=== PATIENT | male | born 1955 | race Caucasian/White ===

== ENCOUNTER 2017-02-04 10:50 | Emergency (ER) | payer MEDICARE, OTHER ==
[~2017-02-04 10:50] MED LIST: ABILIFY10 MG PO; ADVAIR 250-501 EACH INH; ALBUTEROL0.63 MG/3 INH; ASPIRIN 325MG325 MG PO; ASPIRIN325 MG PO; BUSPAR 10MG10 MG PO; CELEBREX200 MG PO; FENOFIBRATE160 MG PO; IBUPROFEN600 MG PO; LAMICTAL TAB 1100 MG PO; LEVAQUIN750 MG PO; LISINOPRIL10 MG PO; MICARDIS40 MG PO; NEURONTIN 400400 MG PO; PAXIL40 MG PO; PERCOCET 10-321 EACH PO; PROAIR HFA8.5 GM INH; PROTONIX 40 MG40 M1 PO; SIMVASTATIN20 MG PO; TESSALON PERLE100 MG PO; TUSSIN100 MG/5 M PO
[2017-02-04 13:16] LABS: HEMOGLOBIN 12.5 gm/dl (14.0-17.5); RED BLOOD COUNT 4.41 M/UL (4.20-5.50); WHITE BLOOD COUNT 5.5 K/UL (4.5-11.0)
[2017-02-04 13:48] LABS: BUN/CREATININE RATIO 16 (0-10)
== END 2017-02-04 18:04 | disposition home or self-care (01) ==
LOC: ER1 10:50
PROVIDERS: Specialist/Technologist Athletic Trainer
DX: I11.0 Hypertensive heart disease with heart failure (principal); I50.9 Heart failure, unspecified; J44.1 Chronic obstructive pulmonary disease with (acute) exacerbation; E66.01 Morbid (severe) obesity due to excess calories; I25.10 Atherosclerotic heart disease of native coronary artery without angina pectoris; Z87.891 Personal history of nicotine dependence; Z88.0 Allergy status to penicillin; Z88.2 Allergy status to sulfonamides; Z88.8 Allergy status to other drugs, medicaments and biological substances; Z95.5 Presence of coronary angioplasty implant and graft
CPT/HCPCS: 36415; 36600; 71020; 80053; 82550; 82553; 82803; 83874; 83880; 84484; 85025; 85610; 85730; 93005; 96374; 99285; J1940

== ENCOUNTER → 2017-03-31 | Outpatient (CLI) | payer MEDICARE, OTHER | LOC: EXRD 10:40 | DX: J44.9 Chronic obstructive pulmonary disease, unspecified (principal); J90 Pleural effusion, not elsewhere classified | CPT/HCPCS: 71020 ==

== ENCOUNTER 2020-09-30 09:47 | Emergency (ER) | payer MEDICARE, OTHER ==
[~2020-09-30 09:47] MED LIST changes: +ASPIRIN CHEWABL81 MG PO; +BREO ELLIPTA 11 EACH INH; +CENTRUM SILVER1 EAC1 PO; +CLOPIDOGREL75 MG PO; +DOXYCYCLINE HY100 M2 PO; +FERROUS SULFAT325 M2 PO; +IMDUR ER TAB 3030 MG PO; +INCRUSE ELLI62.5 MCG INH; +KEFLEX500 MG PO; +LEVAQUIN500 MG PO; +LEVOFLOXACIN250 MG PO; +LOPRESSOR 25 MG25 MG PO; +MEDROL4 MG PO; -NEURONTIN 400400 MG PO; +NEURONTIN600 MG PO; +PREDNISONE 20 M20 MG PO; +PREDNISONE 50 M50 MG PO; +STOOL SOFTENER1 EACH PO; +TRICOR 145 MG145 MG PO; +VENTOLIN HFA 66.7 GM INH; +VENTOLIN/PROVE0.5 ML INH; +VIBRAMYCIN100 MG PO; +XARELTO15 MG PO
[2020-09-30 13:05] LABS: HEMOGLOBIN 13.3 gm/dl (14.0-17.5); RED BLOOD COUNT 4.46 M/UL (4.20-5.50); WHITE BLOOD COUNT 9.1 K/UL (4.5-11.0)
[2020-09-30 13:22] LABS: BUN/CREATININE RATIO 12 (0-10)
== END 2020-09-30 15:20 | disposition home or self-care (01) ==
LOC: ER1 09:47
PROVIDERS: Family Medicine
DX: M79.661 Pain in right lower leg (principal); I82.4Z1 Acute embolism and thrombosis of unspecified deep veins of right distal lower extremity; J44.9 Chronic obstructive pulmonary disease, unspecified; F41.9 Anxiety disorder, unspecified; I25.9 Chronic ischemic heart disease, unspecified; Z79.82 Long term (current) use of aspirin; Z79.02 Long term (current) use of antithrombotics/antiplatelets; Z79.899 Other long term (current) drug therapy; Z79.01 Long term (current) use of anticoagulants
CPT/HCPCS: 71046; 80053; 82550; 82553; 83874; 84484; 85025; 93005; 96372; 99284; J2270; J2550

== ENCOUNTER → 2021-01-16 | Outpatient (CLI) | payer MEDICARE, OTHER ==
[~2021-01-16] MED LIST changes: +AMLODIPINE BESYL5 MG PO; +LASIX40 MG PO; +MICARDIS PO; +NITROGLYCERIN0.4 MG SL
== END ==
LOC: KOH-I 16:08
DX: Z03.818 Encounter for observation for suspected exposure to other biological agents ruled out (principal); J20.9 Acute bronchitis, unspecified; R91.8 Other nonspecific abnormal finding of lung field
CPT/HCPCS: 71046

== ENCOUNTER 2021-01-18 17:47 | Observation (INO) | payer MEDICARE, OTHER ==
[~2021-01-18] VITALS: Ht 195.6 cm; Wt 158.4 kg
[~2021-01-18 17:47] MED LIST changes: -AMLODIPINE BESYL5 MG PO; -LASIX40 MG PO; -MICARDIS PO; -NITROGLYCERIN0.4 MG SL
[2021-01-18 18:43] LABS: HEMOGLOBIN 12.7 gm/dl (14.0-17.5); RED BLOOD COUNT 4.37 M/UL (4.20-5.50); WHITE BLOOD COUNT 9.4 K/UL (4.5-11.0)
[2021-01-18 18:59] LABS: BUN/CREATININE RATIO 14 (0-10)
[2021-01-18] MEDS ORDERED: AMLODIPINE BESYL5 MG PO (21:57)
[2021-01-18] MEDS ORDERED: MICARDIS PO (21:57)
[2021-01-18] MEDS ORDERED: LOPRESSOR 25 MG25 MG PO (21:57)
[2021-01-18] MEDS ORDERED: VENTOLIN HFA 66.7 GM INH (21:58)
[2021-01-18] MEDS ORDERED: NITROGLYCERIN0.4 MG SL (21:58)
[2021-01-19 06:34] LABS: BUN/CREATININE RATIO 14 (0-10)
[2021-01-19 22:08] LABS: BORDETELLA PARAPERTUSSIS Not Detected (Not Detectd); BORDETELLA PERTUSSIS Not Detected (Not Detectd); CHLAMYDIA PNEUMONIAE Not Detected (Not Detectd); CORONAVIRUS HKU1 Not Detected (Not Detectd); CORONAVIRUS NL63 Not Detected (Not Detectd); CORONAVIRUS OC43 Not Detected (Not Detectd); CORONOAVIRUS 229E Not Detected (Not Detectd); HUMAN METAPNEUMOVIRUS Not Detected (Not Detectd); HUMAN RHINOVIRUS/ENTEROVIRUS Not Detected (Not Detectd); INFLUENZA A Not Detected (Not Detectd); INFLUENZA B Not Detected (Not Detectd); MYCOPLASMA PNEUMONIAE Not Detected (Not Detectd); PARAINFLUENZA VIRUS 1 Not Detected (Not Detectd); PARAINFLUENZA VIRUS 2 Not Detected (Not Detectd); PARAINFLUENZA VIRUS 3 Not Detected (Not Detectd); PARAINFLUENZA VIRUS 4 Not Detected (Not Detectd); RESPIRATORY SYNCYTIAL VIRUS Not Detected (Not Detectd)
[2021-01-20 00:18] LABS: SARS-CoV-2 NOT DETECTED (Not Detectd)
[2021-01-20 05:30] LABS: RED BLOOD COUNT 4.84 M/UL (4.20-5.50); WHITE BLOOD COUNT 8.6 K/UL (4.5-11.0)
[2021-01-20 05:48] LABS: BUN/CREATININE RATIO 14 (0-10)
[2021-01-20] MEDS ORDERED: LASIX40 MG PO (10:13)
--- NOTE | 2021-01-20 11:13 | NUR ---
INSTRUCTED ON IMPORTANCE OF TAKING LASIX ORDERED. DAILY WEIGHTS, MED SENT TO [facility]. KEEP FOLLOW UP APPOINTMENTS. VERBALIZED UNDERSTANDING. JUANITA ROUSE R.N.
[2021-01-22 11:14] LABS: ORGANISM ID Not indicated. (.); SPECIMEN SOURCE Urine (.); STREPTOCOCCUS PNEUMONIAE AG Negative (Negative)
== END 2021-01-20 11:23 | disposition home or self-care (01) ==
LOC: ER1 17:47 → CDU 21:06 → M/S 21:06
PROVIDERS: Emergency Medicine; Internal Medicine; ADMIT Internal Medicine
DX: J44.1 Chronic obstructive pulmonary disease with (acute) exacerbation (principal); J96.21 Acute and chronic respiratory failure with hypoxia; J96.22 Acute and chronic respiratory failure with hypercapnia; I11.0 Hypertensive heart disease with heart failure; I50.33 Acute on chronic diastolic (congestive) heart failure; I25.10 Atherosclerotic heart disease of native coronary artery without angina pectoris; I82.401 Acute embolism and thrombosis of unspecified deep veins of right lower extremity; E66.2 Morbid (severe) obesity with alveolar hypoventilation; E87.6 Hypokalemia; F17.210 Nicotine dependence, cigarettes, uncomplicated; E78.5 Hyperlipidemia, unspecified; F31.9 Bipolar disorder, unspecified; F11.90 Opioid use, unspecified, uncomplicated; F41.9 Anxiety disorder, unspecified; Z95.5 Presence of coronary angioplasty implant and graft; Z99.81 Dependence on supplemental oxygen; Z98.84 Bariatric surgery status; Z20.822 Contact with and (suspected) exposure to COVID-19; Z68.41 Body mass index [BMI] 40.0-44.9, adult; Z99.89 Dependence on other enabling machines and devices; Z88.2 Allergy status to sulfonamides; Z88.0 Allergy status to penicillin; Z79.02 Long term (current) use of antithrombotics/antiplatelets; Z79.01 Long term (current) use of anticoagulants; Z79.82 Long term (current) use of aspirin; Z79.899 Other long term (current) drug therapy
CPT/HCPCS: ECHO; 36415; 36600; 80048; 80053; 80061; 80307; 82550; 82553; 82803; 83036; 83735; 83874; 83880; 84100; 84132; 84439; 84443; 84484; 84550; 85025; 86738; 87081; 87278; 87633; 87880; 87899; 93005; 93306; 93971; 94640; 94660; 94760; 96374; 96375; 96376; 99285; G0378; J1940; Q9967; U0002

== ENCOUNTER → 2021-02-11 | Outpatient (CLI) | payer MEDICARE, OTHER ==
[~2021-02-11] MED LIST changes: +AMLODIPINE BESYL5 MG PO; +LASIX40 MG PO; +MICARDIS PO; +NITROGLYCERIN0.4 MG SL
== END ==
LOC: CT 08:31
DX: R53.83 Other fatigue (principal); R31.29 Other microscopic hematuria; N28.1 Cyst of kidney, acquired; E27.9 Disorder of adrenal gland, unspecified
CPT/HCPCS: 36415; 82565; 84520; Q9963; Q9967

== ENCOUNTER 2021-10-31 13:41 | Inpatient (IN) | payer MEDICARE, OTHER ==
[~2021-10-31] VITALS: Ht 195.6 cm; Wt 163.7 kg
[~2021-10-31 13:41] MED LIST changes: -BREO ELLIPTA 11 EACH INH; -BUSPAR 10MG10 MG PO; -MICARDIS PO; -NEURONTIN600 MG PO; -PERCOCET 10-321 EACH PO; -PROTONIX 40 MG40 M1 PO
[2021-10-31 14:20] LABS: HEMOGLOBIN 12.5 gm/dl (14.0-17.5); RED BLOOD COUNT 4.38 M/UL (4.20-5.50); WHITE BLOOD COUNT 8.5 K/UL (4.5-11.0)
[2021-10-31 14:47] LABS: BUN/CREATININE RATIO 10 (0-10)
[2021-10-31] MEDS ORDERED: NEURONTIN600 MG PO (16:04)
[2021-10-31] MEDS ORDERED: OXYCODONE HCL10 MG PO (16:05)
[2021-10-31] MEDS ORDERED: PROTONIX 40 MG40 M1 PO (16:08)
[2021-10-31] MEDS ORDERED: BUSPIRONE HCL7.5 MG PO (16:11)
[2021-10-31] MEDS ORDERED: CARVEDILOL6.25 MG PO (18:58)
[2021-10-31] MEDS ORDERED: CHLORTHALIDONE25 MG PO (18:58)
[2021-10-31] MEDS ORDERED: DOCUSATE SODIU100 MG PO (18:59)
[2021-10-31] MEDS ORDERED: BREO ELLIPTA 11 EACH INH (19:42)
[2021-10-31] MEDS ORDERED: MICARDIS80 MG PO (21:57)
[2021-10-31] MEDS ORDERED: PROAIR DIGIHAL90 MCG INH (21:58)
[2021-11-01 04:58] LABS: HEMOGLOBIN 12.4 gm/dl (14.0-17.5); RED BLOOD COUNT 4.51 M/UL (4.20-5.50)
[2021-11-01 05:03] LABS: WHITE BLOOD COUNT 6.2 K/UL (4.5-11.0)
[2021-11-01 05:22] LABS: BUN/CREATININE RATIO 11 (0-10)
[2021-11-01] MEDS ORDERED: NICOTINE PATCH1 EAC2 TOP (15:17)
[2021-11-01] MEDS ORDERED: PREDNISONE 10 M10 MG PO (15:17)
[2021-11-01] MEDS ORDERED: CEFUROXIME500 MG PO (15:17)
== END 2021-11-01 16:39 | disposition home or self-care (01) | DRG 191 ==
LOC: ER1 13:41 → CDU 17:33 → M/S 22:19
PROVIDERS: Emergency Medicine; Physician Assistant; ADMIT Internal Medicine
DX: J44.1 Chronic obstructive pulmonary disease with (acute) exacerbation (principal); J96.11 Chronic respiratory failure with hypoxia; Z20.822 Contact with and (suspected) exposure to COVID-19; E87.1 Hypo-osmolality and hyponatremia; N17.9 Acute kidney failure, unspecified; E66.2 Morbid (severe) obesity with alveolar hypoventilation; Z68.42 Body mass index [BMI] 45.0-49.9, adult; N18.30 Chronic kidney disease, stage 3 unspecified; I12.9 Hypertensive chronic kidney disease with stage 1 through stage 4 chronic kidney disease, or unspecified chronic kidney disease; R55 Syncope and collapse; Z96.653 Presence of artificial knee joint, bilateral; E78.5 Hyperlipidemia, unspecified; R07.89 Other chest pain; D63.1 Anemia in chronic kidney disease; D75.839 Thrombocytosis, unspecified; M25.421 Effusion, right elbow; F31.9 Bipolar disorder, unspecified; I25.10 Atherosclerotic heart disease of native coronary artery without angina pectoris; G47.33 Obstructive sleep apnea (adult) (pediatric); F17.210 Nicotine dependence, cigarettes, uncomplicated; Z91.14 Patient's other noncompliance with medication regimen; Z95.5 Presence of coronary angioplasty implant and graft; Z99.81 Dependence on supplemental oxygen; Z86.718 Personal history of other venous thrombosis and embolism; Z79.01 Long term (current) use of anticoagulants; Z90.49 Acquired absence of other specified parts of digestive tract; Z98.84 Bariatric surgery status; Z88.6 Allergy status to analgesic agent; Z82.49 Family history of ischemic heart disease and other diseases of the circulatory system; Z83.3 Family history of diabetes mellitus
CPT/HCPCS: 36415; 36600; 70450; 71045; 73070; 80053; 82550; 82553; 82803; 83605; 83735; 83880; 84484; 85025; 85610; 85730; 87040; 93005; 94640; 94664; 94760; 96372; 96374; 96375; 96376; 99285; J0456; J0696; J1650; J2920; J2930; J7030; U0002

== ENCOUNTER → 2022-02-02 | Outpatient (CLI) | payer MEDICARE, OTHER ==
[~2022-02-02] MED LIST changes: +BREO ELLIPTA 11 EACH INH; +BUSPIRONE HCL7.5 MG PO; +CARVEDILOL6.25 MG PO; +CEFUROXIME500 MG PO; +CHLORTHALIDONE25 MG PO; +DOCUSATE SODIU100 MG PO; +MICARDIS80 MG PO; +NEURONTIN600 MG PO; +NICOTINE PATCH1 EAC2 TOP; +OXYCODONE HCL10 MG PO; +PREDNISONE 10 M10 MG PO; +PROAIR DIGIHAL90 MCG INH; +PROTONIX 40 MG40 M1 PO
== END ==
LOC: EXRD 13:04
DX: I73.9 Peripheral vascular disease, unspecified (principal); I25.10 Atherosclerotic heart disease of native coronary artery without angina pectoris; S81.802A Unspecified open wound, left lower leg, initial encounter
CPT/HCPCS: 93925

== ENCOUNTER → 2022-02-13 | Outpatient (CLI) | payer MEDICARE, OTHER ==
[~2022-02-13] MED LIST changes: +ALBUTEROL INH; -AMLODIPINE BESYL5 MG PO; +DALIRESP250 MCG PO; +NORVASC10 MG PO; +TRELEGY ELLIPT1 EACH INH
[2022-02-13 11:37] LABS: HEMOGLOBIN 11.8 gm/dl (14.0-17.5); RED BLOOD COUNT 4.06 M/UL (4.20-5.50); WHITE BLOOD COUNT 9.3 K/UL (4.5-11.0)
== END ==
LOC: EDSTATUS 10:00 → OPSV2 10:00
PROVIDERS: Podiatrist Foot & Ankle Surgery
DX: Z01.812 Encounter for preprocedural laboratory examination (principal)
CPT/HCPCS: 80048; 83036; 85025

== ENCOUNTER → 2022-03-15 | Outpatient (CLI) | payer MEDICARE, OTHER | LOC: SLEEP 09:45 | DX: G47.33 Obstructive sleep apnea (adult) (pediatric) (principal) | CPT/HCPCS: 95811 ==

== ENCOUNTER 2022-03-29 13:03 | Emergency (ER) | payer MEDICARE, OTHER ==
[2022-03-29 14:57] LABS: HEMOGLOBIN 12.5 gm/dl (14.0-17.5); RED BLOOD COUNT 4.44 M/UL (4.20-5.50); WHITE BLOOD COUNT 10.5 K/UL (4.5-11.0)
[2022-03-29] MEDS ORDERED: CEPHALEXIN500 M1 PO (16:35)
== END 2022-03-29 16:55 | disposition home or self-care (01) ==
LOC: ER1 13:03
PROVIDERS: Physician Assistant Medical
DX: L89.892 Pressure ulcer of other site, stage 2 (principal); E11.22 Type 2 diabetes mellitus with diabetic chronic kidney disease; I12.9 Hypertensive chronic kidney disease with stage 1 through stage 4 chronic kidney disease, or unspecified chronic kidney disease; N18.30 Chronic kidney disease, stage 3 unspecified; J44.9 Chronic obstructive pulmonary disease, unspecified; Z90.49 Acquired absence of other specified parts of digestive tract; Z95.5 Presence of coronary angioplasty implant and graft
CPT/HCPCS: 73610; 73630; 80053; 85025; 85652; 86140; 99283

== ENCOUNTER 2022-05-20 19:28 | Emergency (ER) | payer MEDICARE, OTHER ==
[~2022-05-20] VITALS: Ht 193 cm; Wt 175.1 kg
[~2022-05-20 19:28] MED LIST changes: +CEPHALEXIN500 M1 PO
[2022-05-20 20:23] LABS: RED BLOOD COUNT 4.07 M/UL (4.20-5.50); WHITE BLOOD COUNT 5.5 K/UL (4.5-11.0)
[2022-05-20] MEDS ORDERED: ZITHROMAX250 MG PO (22:49)
[2022-05-20] MEDS ORDERED: DECADRON6 MG PO (22:49)
== END 2022-05-20 23:02 | disposition home or self-care (01) ==
LOC: ER1 19:28
PROVIDERS: Physician Assistant Medical
DX: U07.1 COVID-19 (principal); J44.9 Chronic obstructive pulmonary disease, unspecified
CPT/HCPCS: 71045; 80053; 82550; 82553; 83880; 84484; 85025; 93005; 99285; M0222; U0002